=== PATIENT | male | born 1980 | race Caucasian/White ===

== ENCOUNTER 2016-12-30 15:36 | Emergency (ER) | payer OTHER ==
--- NOTE | ~2016-12-30 | ER ---
PATIENT'S NAME: JOY ESPINOSA [facility] AGE: 36 Y [address] ROOM: [place] [address] LOCATION: [facility] ADMIT DATE: 12/30/2016 ER/Outpatient Report DISCHARGE DATE: 12/30/2016 FAMILY PHYSICIAN: PHYSICIAN, NO ATTENDING PHYSICIAN: Erum Beauchamp Time of Arrival: 1536. Time of evaluation: 1536. CHIEF COMPLAINT: Fall off rough 20 feet. HISTORY OF PRESENT ILLNESS: This is a 36-year-old male presents to the ER via car, who states that he was up framing a building and the trusses fell and he ultimately fell 20 feet down to the ground. He states he is complaining of right flank pain and some neck discomfort. He also states he has some slight abdominal discomfort as well. He did sustain a laceration to his chin. He does not believe he lost consciousness. He was able to ambulate in as well. States he actually has a doctor's appointment tomorrow because he has chronic neck pain that radiates pain into his left arm. He states he also has troubles with his bowels and is concerned that he might have Crohn's disease and he is also being evaluated for a nodule that he has in his lung. He has had no fever or chills. No other problems at this time. ALLERGIES: PENICILLIN. MEDICATIONS: Please see medication list nurse's notes. PAST MEDICAL HISTORY: 1. Chronic diarrhea. 2. Left inguinal hernia. 3. Chronic posterior neck pain with numbness down left arm. SOCIAL HISTORY: Smokes 1 pack a day for last 30 years. He does drink or smoke marijuana daily. REVIEW OF SYSTEMS: All systems are reviewed and negative exception of those discussed in the HPI. PHYSICAL EXAMINATION: VITAL SIGNS: Weight 89.8 kg, taken blood pressure is 162/90, pulse 84, PATIENT'S NAME: JOY ESPINOSA [facility] AGE: 36 Y [address] ROOM: [place] [address] LOCATION: [facility] ADMIT DATE: 12/30/2016 ER/Outpatient Report DISCHARGE DATE: 12/30/2016 FAMILY PHYSICIAN: PHYSICIAN, NO ATTENDING PHYSICIAN: Erum Beauchamp respirations 18, temperature 98.2 degrees tympanically, and saturations 97% on room air. Sonali Coma Score is 15. GENERAL: Alert, very anxious, 36-year-old male in moderate distress. HEENT. Head: Normocephalic. Eyes: Pupils are equal and reactive to light. Ears: TMs display good light reflexes bilaterally. Auditory canals clear. Nose: Turbinates pink with no drainage. Throat: No exudates or erythema. He does have moist mucous membranes. He is able to open and close his jaw with no discomfort. His teeth feel like bearing good alignment. NECK: Supple. No lymphadenopathy. LUNGS: Clear to auscultation bilaterally. HEART: Regular rate and rhythm. ABDOMEN: Soft. He does have generalized tenderness in all 4 quadrants. No guarding. No rebound tenderness. He has good bowel sounds throughout. MUSCULOSKELETAL: He does have tenderness over his cervical spine and right flank with palpation. He has some tenderness over his right jaw line and some tenderness throughout his abdomen as well. SKIN: He has a 3.5 cm laceration noted to his right lower jaw line. He also has some abrasions to his left posterior elbow and both knees. NEURO: Cranial nerves II through XII grossly intact. Gait is steady without assistance. LABORATORY DATA: Reviewed. Sodium 143, potassium 3.8, BUN 26, and creatinine 0.8. White blood cell count 11.8, hemoglobin is 13.6, and platelets 241. CT scan, he has a 10 mm noncalcified nodule in the right upper lobe. Cervical spine CT, no acute. CT of the head was nothing acute. CT of the facial bones nothing acute. IMPRESSION: 1. A 3.5 cm facial laceration to the right lower jaw line. 2. Right rib pain and flank pain. 3. Abrasions to left posterior elbow in both hands. 4. A 10 mm noncalcified nodule in the right upper lobe. ASSESSMENT AND PLAN: Discussed the patient's care Dr. Beauchamp. Dr. Beauchamp also evaluated the patient. The patient did have an IV started. We did give him 0.5 mg of Dilaudid and 50 mcg of fentanyl for his pain. We did update him on the tetanus shot as well. I did numb the laceration site with 1% lidocaine with epinephrine. Cleansed site with Betadine, flushed thoroughly with normal saline and repaired the laceration using 6-0 Ethilon. The patient did tolerate this well. We will dismiss the patient home. The patient does have an appointment to see a primary care physician tomorrow and advised them to notify this provider of what we did today, so that they may review those results and he needs a PATIENT'S NAME: JOY ESPINOSA [facility] AGE: 36 Y [address] ROOM: [place], [place] [address] LOCATION: [facility] ADMIT DATE: 12/30/2016 ER/Outpatient Report DISCHARGE DATE: 12/30/2016 FAMILY PHYSICIAN: PHYSICIAN, NO ATTENDING PHYSICIAN: Erum Beauchamp followup with his primary care physician again in 5-7 days for suture removal. We will dismiss the patient home with prescription for [place] to use as directed. He needs to ice these sore areas and monitor symptoms closely. The patient understands and agree with care. SHAILESH JUNIOR PA-C FOR [facility] BERMEO/anastacio /[id number] d: t: 01/02/17 1235, OUTPATIENT REPORT
[2016-12-30 16:22] LABS: BASOPHIL # 0.1 K/uL (0.0-0.2); BASOPHIL % 0.7 %; EOSINOPHIL # 0.1 K/uL (0.0-0.5); EOSINOPHIL % 0.9 %; HEMATOCRIT 40.3 % (37.0-53.0); HEMOGLOBIN 13.6 g/dL (12.0-17.0); IMMATURE GRANULOCYTE # 0.1 K/uL (0.0-0.3); IMMATURE GRANULOCYTE % 0.6 %; LYMPHOCYTE # 2.5 K/uL (0.8-4.0); LYMPHOCYTE % 21.5 %; MCH 28.7 pg (27.0-34.0); MCHC 33.7 gm/dL (32.0-36.5); MONOCYTE # 0.7 K/uL (0.0-1.0); MONOCYTE % 6.2 %; MPV 9.9 fl (9.4-12.4); NEUTROPHIL # (ANC) 8.3 K/uL (1.4-9.0); NEUTROPHIL % 70.1 %; NRBC % 0 /100WBC (0-0.00); PLATELET COUNT 241 K/uL (150-450); RBC 4.74 M/uL (4.00-6.00); RDW-CV 14.4 % (11.9-14.6); WBC 11.8 K/uL (4.0-11.0)
[2016-12-30 16:38] LABS: ALBUMIN 4.3 gm/dL (3.5-5.0); ALK PHOS 51 IU/L (33-138); ALT 72 IU/L (12-78); ANION GAP 8.8 (10.0-19.0); AST 39 IU/L (10-40); BLOOD UREA NITROGEN 26 mg/dL (6-24); CALCIUM 8.7 mg/dL (8.5-10.5); CHLORIDE 113 mMol/L (96-110); CO2 25 mMol/L (22-32); CREATININE 0.8 mg/dL (0.6-1.3); POTASSIUM 3.8 mMol/L (3.7-5.1); SODIUM 143 mMol/L (135-145); TOTAL BILIRUBIN 0.3 mg/dL (0.0-1.5); TOTAL PROTEIN 7.2 g/dL (6.0-8.4)
== END 2016-12-30 17:15 | disposition disaster alternative care site (69) ==
LOC: GACC 15:36
PROVIDERS: Family Medicine
DX: S01.81XA Laceration without foreign body of other part of head, initial encounter (principal); S50.312A Abrasion of left elbow, initial encounter; S50.311A Abrasion of right elbow, initial encounter; F17.210 Nicotine dependence, cigarettes, uncomplicated; Z88.0 Allergy status to penicillin; Z79.1 Long term (current) use of non-steroidal anti-inflammatories (NSAID); W13.8XXA Fall from, out of or through other building or structure, initial encounter
CPT/HCPCS: J1170; J3010; Q9967